=== PATIENT | female | born 1985 ===

== ENCOUNTER 2022-05-09 21:00 | Inpatient (IN) | payer OTHER ==
[2022-05-09] MEDS ORDERED: OXYTOCIN 30 UNITS in 0.9% NS 30 UNIT/500 ML INFUS.BAG IVPB SCH (21:15)
[2022-05-09] MEDS ORDERED: ELECTROLYTE-148 SOLN 1,000 ML IV SCH (21:45)
[2022-05-09 22:06] LABS: INR 0.85 (0.83-1.09); PROTHROMBIN TIME (PATIENT) 9.8 SEC (9.7-13.0)
[2022-05-09 22:08] LABS: BASO % 0.4 % (0-2.0); EOS % 1.5 % (0-4.5); HEMATOCRIT 39.5 % (32.4-45.2); LYMPH % 34.1 % (8-40); MCH 30.7 pg (25.7-33.7); MEAN CELL VOLUME 93.2 fl (80-96); MEAN PLT VOLUME 10.4 fl (7.5-11.1); MONO % 10.3 % (3.8-10.2); NEUT % 53.7 % (42.8-82.8); PLATELET COUNT 155 10^3/uL (134-434); RBC 4.23 M/mm3 (3.60-5.2); RDW 14.3 % (11.6-15.6); WHITE BLOOD COUNT 6.3 K/mm3 (4.0-10.0)
[2022-05-09 22:09] VITALS: BMI 27.5
[2022-05-09 22:09] LABS: ACTIVATED PTT 28.3 SECONDS (25.2-36.5)
[2022-05-09 22:19] LABS: CALCIUM 10.3 mg/dL (8.5-10.1)
[2022-05-09 22:20] LABS: BLOOD UREA NITROGEN 18.7 mg/dL (7-18)
[2022-05-09 22:23] LABS: CREATININE 1.2 mg/dL (0.55-1.3)
[2022-05-09] MEDS ORDERED: FENTANYL/BUPIVACAINE/NS/PF - PCEA - 50 ML DISP.SYRIN EP ONE (22:23)
[2022-05-09] MEDS ORDERED: NALOXONE HCL 0.4 MG/ML VIAL IVPUSH PRN (22:36)
[2022-05-09] MEDS ORDERED: BUPIVACAINE HCL/PF 0.25% (2.5MG/ML) 10 ML VIAL ONE (22:38)
[2022-05-09] MEDS ORDERED: FENTANYL/BUPIVACAINE/NS/PF - PCEA - 50 ML DISP.SYRIN EP SCH (22:45)
[2022-05-10] MEDS ORDERED: OXYTOCIN 20 UNITS in 0.9% NS 20 UNIT/1,000 ML INFUS.BAG IV ONE ×2 (01:23→07:42)
[2022-05-10] MEDS ORDERED: FENTANYL/BUPIVACAINE/NS/PF - PCEA - 50 ML DISP.SYRIN EP SCH (01:35)
[2022-05-10] MEDS ORDERED: oxyCODONE HCL 5 MG TABLET PO PRN (05:06)
[2022-05-10] MEDS ORDERED: BENZOCAINE 20% 57 GM BOTTLE TP PRN (05:06)
[2022-05-10] MEDS ORDERED: BISACODYL 10 MG SUPP.RECT RC PRN (05:06)
[2022-05-10] MEDS ORDERED: WITCH HAZEL 50% (TUCKS) 40 PAD/JAR PAD TP PRN (05:06)
[2022-05-10] MEDS ORDERED: BENZOCAINE 28 GM HEMORRHOIDAL OINTMENT TP PRN (05:06)
[2022-05-10] MEDS ORDERED: METHYLERGONOVINE MALEATE 0.2 MG/1 ML AMP IM PRN (05:06)
[2022-05-10] MEDS ORDERED: ACETAMINOPHEN 325 MG TABLET (FP) PO PRN (05:06)
[2022-05-10] MEDS ORDERED: OXYTOCIN 20 UNITS in 0.9% NS 20 UNIT/1,000 ML INFUS.BAG IV SCH (05:15)
[2022-05-10] MEDS ORDERED: IBUPROFEN 600 MG TABLET (FP) PO ONE (07:48)
[2022-05-10] MEDS: IBUPROFEN 600 MG TABLET (FP) PO PRN ×2 (07:50→20:50)
[2022-05-10] MEDS: PRENATAL VITAMINS W/ FOLIC ACID TABLET (FP) PO SCH (09:48)
[2022-05-10 15:58] LABS: SYPHILIS W/ RPR CONF NON-REACTIVE (NONREACTIVE)
[2022-05-10 16:26] LABS: HIV INTERPRETATION NEGATIVE (NEGATIVE)
[2022-05-11 07:46] LABS: BASO % 0.3 % (0-2.0); EOS % 1.5 % (0-4.5); HEMATOCRIT 33.9 % (32.4-45.2); HEMOGLOBIN 11.3 GM/dL (10.7-15.3); LYMPH % 28.2 % (8-40); MCH 31.2 pg (25.7-33.7); MCHC 33.2 g/dl (32.0-36.0); MEAN CELL VOLUME 94.2 fl (80-96); MEAN PLT VOLUME 10.3 fl (7.5-11.1); MONO % 6.4 % (3.8-10.2); NEUT % 63.6 % (42.8-82.8); PLATELET COUNT 107 10^3/uL (134-434); RDW 14.1 % (11.6-15.6)
[2022-05-11] MEDS: IBUPROFEN 600 MG TABLET (FP) PO PRN ×3 (07:50→21:50)
[2022-05-11] MEDS: PRENATAL VITAMINS W/ FOLIC ACID TABLET (FP) PO SCH (10:15)
[2022-05-11] MEDS ORDERED: SENNOSIDES/DOCUSATE COMBO (SENNA PLUS) TABLET (UD) PO PRN (22:00)
[2022-05-12] MEDS: IBUPROFEN 600 MG TABLET (FP) PO PRN (08:50)
[2022-05-12 09:02] VITALS: BP 112/73; PULSE 75; RESP 16; TEMP 98
[2022-05-12] MEDS: PRENATAL VITAMINS W/ FOLIC ACID TABLET (FP) PO SCH (10:13)
== END 2022-05-12 11:35 | disposition home or self-care (01) | DRG 560 ==
LOC: JLDR 21:00 → J3W 05-10 08:05
PROVIDERS: ADMIT Obstetrics & Gynecology; ATTEND Obstetrics & Gynecology
PROC: 10E0XZZ Delivery of Products of Conception, External Approach (ICD-10-PCS; principal; 2022-05-09)
DX: O80 Encounter for full-term uncomplicated delivery (principal); Z3A.39 39 weeks gestation of pregnancy; Z37.0 Single live birth
CPT/HCPCS: 36415; 59409; 80048; 85025; 85610; 85730; 86780; 86850; 86870; 86900; 86901; 86902; 87389; C9803-CS; U0003; U0005